=== PATIENT | male | born 1940 | race Two or more races ===

== ENCOUNTER → 2017-05-17 | Day surgery (SDC) | payer OTHER ==
[~2017-05-17] MED LIST: ACETAMINOPHEN 325 MG TAB ONE; ACETYLCHOLINE CHL OPHT SOLN 1:100 2 ML VIAL I-OCULAR ONE; ACETYLCHOLINE CHL OPHT SOLN 1:100 2 ML VIAL ONE; DEXAMETHASONE SOD PHOS 4 MG/ML VIAL ONE; EPINEPHrine HCL (1:1000) 1 MG/ML VIAL ONE; LACTATED RINGER'S 1000 ML INJ 1,000 ML ONE; MOXIFLOXACIN 0.5% OPHT SOLN 3 ML BTL ONE; ONDANSETRON HCL 4 MG/2 ML VIAL IV PUSH ONE; PHENYLEPHRINE HCL 10% OPTH SOLN 5 ML BTL ONE; PROPOFOL 200 MG/20 ML AMP IV ONE; SODIUM CHLORIDE 0.9% INJ 10 ML ONE; TETRACAINE 0.5% OPTH SOLN 15 ML BTL ONE; TOBRAMYCIN/DEXAMETHASONE OPTH OINT 3.5 GM TUBE ONE; TRIAMCINOLONE ACETONIDE 40 MG/ML VIAL ONE; ceFAZolin INJ 1,000 MG VIAL ONE; prednisoLONE ACETATE 1% OPHT SUSP 5 ML BTL ONE
--- NOTE | 2017-05-18 09:51 | MP ---
cc: PETRA LEMUS MD DATE OF SURGERY: 05/17/2017 PREOPERATIVE DIAGNOSIS Aphakia, branch retinal vein occlusion, retinal tears right eye. POSTOPERATIVE DIAGNOSIS Aphakia, branch retinal vein occlusion, retinal tears right eye. PROCEDURE Pars plana vitrectomy, endolaser, insertion of 19.5 diopter MA60 AC intraocular lens into the ciliary sulcus, air-fluid exchange, right eye. COMPLICATIONS None. BLOOD LOSS Less than 1 cc. ANESTHESIA General, Dr. Sexton. 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 The patient was aphakic and desired intraocular lens placement. The patient also has corneal edema which may need to be addressed at a later date. The patient and are aware of the risks, benefits, alternatives and wished to proceed with surgery. PROCEDURE NOTE After informed consent was obtained, the patient was brought to the operating room and general anesthesia was established. The right eye was prepped and draped in sterile fashion with Betadine in the conjunctival fornix. A three port pars plana vitrectomy was established with self-retaining infusion cannula. Core vitreous was evacuated and peripheral vitreous traction relieved. Attention was now paid to the anterior chamber and ciliary sulcus. A near clear corneal incision was made with a 3.0 keratome. Provisc was used to fill the ciliary sulcus. Ghassan MA60 AC 19.5 diopter power intraocular lens was inserted into the ciliary sulcus. The Provisc was removed with vitrector and lens noted to be quite stable. The near clear corneal incision was closed with 10-0 Nylon suture. Attention was now paid again to the posterior pole. The scleral depression examination revealed peripheral retinal tears which appeared to be previously treated with laser. These areas were surrounded by endolaser. No untreated retinal holes, tears or detachments were seen. Air-fluid exchange was carried out. Trocars were removed and sclerotomies closed. Conjunctiva was reapproximated with 6-0 plain gut. Subconjunctival injection of Ancef and dexamethasone were given. The eye was patched with Tobramycin ointment. The patient was brought to the recovery room in stable condition and will continue to followup with [facility] for his postoperative care. MD BRITTNEY Valentin /11:07 PM /9:22 AM [facility]
== END | disposition home or self-care (01) ==
LOC: ESDC 06:40
PROVIDERS: ATTEND Ophthalmology
DX: H27.01 Aphakia, right eye (principal); H34.8112 Central retinal vein occlusion, right eye, stable; H33.311 Horseshoe tear of retina without detachment, right eye
CPT/HCPCS: 00142; 00145; 66985; 67108; J0171; J0690; J1100; J2405; J3010; J3301; J7120; V2632